=== PATIENT | male | born 1990 | race Asian ===

== ENCOUNTER 2021-07-24 08:00 | Outpatient (CLI) | payer OTHER | END 2021-07-24 23:59 | disposition home or self-care (01) | LOC: LAB.N 08:00 | PROVIDERS: ATTEND Nurse Practitioner | DX: U07.1 COVID-19 (principal) ==

== ENCOUNTER 2023-01-03 10:07 | Emergency (ER) | payer OTHER ==
[2023-01-03 10:32] LABS: BASOPHILS # (AUTO) 0.1 10^3/uL (0.0-0.1); BASOPHILS % (AUTO) 1.4 %; EOSINOPHILS # (AUTO) 0.1 10^3/uL (0.0-0.7); EOSINOPHILS % (AUTO) 2.5 %; HCT - HEMATOCRIT 44.2 % (42.0-52.0); HGB - HEMOGLOBIN 14.6 g/dL (14.0-18.0); LYMPHOCYTES % (AUTO) 36.1 %; MEAN CORPUSCULAR HEMOGLOBIN 30.2 pg (27.0-31.0); MEAN CORPUSCULAR VOLUME 91.3 fL (80.0-94.0); MEAN PLATELET VOLUME 9.2 fL (7.4-11.4); MONOCYTES # (AUTO) 0.3 10^3/uL (0.0-1.0); NEUTROPHILS # (AUTO) 3.1 10^3/uL (1.5-6.6); NEUTROPHILS % (AUTO) 54.6 %; PLT - PLATELET COUNT 325 10^3/uL (130-450); RED BLOOD COUNT 4.84 10^6/uL (4.70-6.10); RED CELL DISTRIBUTION WIDTH 12.3 % (12.0-15.0); WHITE BLOOD COUNT 5.6 x10^3/uL (4.8-10.8)
--- NOTE | 2023-01-03 10:39 | ED Physician Documentation ---
PD HPI CHEST PAIN - Stated complaint Stated Complaint: DIZZINESS, CHEST TIGHTNESS - Chief complaint Chief Complaint: Cardiac - History obtained from History obtained from: Patient - History of Present Illness Timing - onset: How many days ago (6) Timing - onset during: Rest. No: Exertion Timing - duration: Days (he has noted feeling of brief discomfort in anterior chest at times the past 6 days. No pain with movement. No dyspnea. No pain with breathing. Feeling is random but mostly noted rest and light activity. Has not felt exertional CP/SOA. no edema. No calf pains.) Timing - details: Intermittant Quality: Aching, Pain (feeling of small shock in chest rather than sharp pain.) Location: Substernal, Left chest Radiation: No: Neck, Back Worsened by: No: Inspiration, Eating, Movement, Palpation Associated symptoms: Shortness of air (intermittently), Palpitations. No: Nausea, Feeling faint / dizzy, Cough Similar symptoms before: Has not had sx before Recently seen: Emergency Dept (he was in [place], [place] at onset and seen in ER there with normal ECG/CXR/labs. No specific diagnosis. He returned home 4 days ago and felt okay on the flight. Still with the intermittent feeling here.) Review of Systems Constitutional: denies: Fever, Chills Nose: denies: Rhinorrhea / runny nose, Congestion Throat: denies: Sore throat Cardiac: denies: Pedal edema, Calf pain Respiratory: reports: Dyspnea (when the feeling occurs, not consistently). denies: Cough, Wheezing GI: denies: Abdominal Pain, Nausea, Vomiting, Diarrhea Skin: denies: Rash, Lesions Neurologic: reports: Headache (mild headache today with some lightheadedness. No vertigo.). denies: Near syncope, Syncope, Altered mental status PD PAST MEDICAL HISTORY - Past Medical History Cardiovascular: None Respiratory: Asthma Neuro: None Endocrine/Autoimmune: None - Allergies Allergies/Adverse Reactions: Allergies Allergy/AdvReac Type Severity Reaction Status Date / Time No Known Drug Allergies Allergy Verified 01/03/23 10:17 PD ED PE NORMAL - Vitals Vital signs reviewed: Yes (not tachycardic. Normal sats. ) - General General: Alert and oriented X 3, No acute distress, Well developed/nourished - HEENT HEENT: Pharynx benign - Neck Neck: Supple, no meningeal sign, No adenopathy, No bruit - Cardiac Cardiac: RRR, No murmur - Respiratory Respiratory: No respiratory distress, Clear bilaterally, Other (no chestwall tenderness. ) - Abdomen Abdomen: Soft, Non tender - Derm Derm: Normal color, Warm and dry - Extremities Extremities: No tenderness to palpate, No edema, No calf tenderness / cord - Neuro Neuro: Alert and oriented X 3, No motor deficit, Normal speech Results - Vitals Vitals: Vital Signs - 24 hr 01/03/23 01/03/23 01/03/23 10:11 10:41 11:00 Temperature 36.4 C L Heart Rate 74 77 77 Respiratory 16 18 20 Rate Blood Pressure 151/83 H 140/88 H O2 Saturation 100 100 100 01/03/23 01/03/23 11:49 12:07 Temperature Heart Rate 71 63 Respiratory 18 18 Rate Blood Pressure 122/73 122/73 O2 Saturation 100 100 Oxygen O2 Source Room air - EKG (time done) 10:13 EKG releavant findings:: EKG personally interpreted by author of this note. Relevant findings are: Rate: Rate (enter#) (86) Rhythm: NSR [place]: Normal Intervals: Normal VT QRS: Normal Ischemia: Normal ST segments. No: ST elevation c/w ischemia, ST depression - Labs Labs: Laboratory Tests 01/03/23 01/03/23 01/03/23 10:26 10:26 10:26 WBC 5.6 RBC 4.84 Hgb 14.6 Hct 44.2 MCV 91.3 MCH 30.2 MCHC 33.0 RDW 12.3 Plt Count 325 MPV 9.2 Neut # (Auto) 3.1 Lymph # (Auto) 2.0 [place] # (Auto) 0.3 Eos # (Auto) 0.1 Baso # (Auto) 0.1 Absolute Nucleated RBC 0.00 Nucleated RBC % 0.0 Sodium 141 Potassium 4.2 Chloride 104 Carbon Dioxide 29 Anion Gap 8.0 BUN 11 Creatinine 0.9 Estimated GFR (MDRD) 97 Glucose 94 Calcium 9.3 Magnesium 2.1 Total Bilirubin 0.7 AST 28 ALT 46 Alkaline Phosphatase 72 Troponin I High Sens < 2.3 L B-Natriuretic Peptide Total Protein 8.2 Albumin 4.5 Globulin 3.7 Albumin/Globulin Ratio 1.2 Lipase 43 TSH 01/03/23 01/03/23 10:26 10:26 WBC RBC Hgb Hct MCV MCH MCHC RDW Plt Count MPV Neut # (Auto) Lymph # (Auto) Barber # (Auto) Eos # (Auto) Baso # (Auto) Absolute Nucleated RBC Nucleated RBC % Sodium Potassium Chloride Carbon Dioxide Anion Gap BUN Creatinine Estimated GFR (MDRD) Glucose Calcium Magnesium Total Bilirubin AST ALT Alkaline Phosphatase Troponin I High Sens B-Natriuretic Peptide 22 Total Protein Albumin Globulin Albumin/Globulin Ratio Lipase TSH 0.41 - Rads (name of study) chest xray Relevant Findings:: Prelim report reviewed, EMP independent interpretation of test (no acute abnormalities. ), See rad report PD Medical Decision Making - ED course Complexity details: reviewed results (normal ECG, CXR and trop/bNP so no signs of mI, heart strain, CHF. PERC negative and symptoms do not sound like PE (had recent travel by plane). Had some PACs in ER with stated symptoms while here. Unclear if causative, but might be. Recommend Holter through PCP. No signs of threatening causes here.), re-evaluated patient (after labs, on recheck, he says he did have a couple of events of symptoms while here in the ER. He was on the monitor and no alarms had gone off so not too abnormal. But I did rhythm review for the time he was on monitor and the only abnormalities were a couple of separate PACs. Unknonw if cause.), considered differential, d/w patient Departure - Departure Disposition: 01 Home, Self Care Clinical Impression: Chest discomfort, Intermittent lightheadedness Condition: Stable Instructions: ED Palpitations Follow-Up: DICK MCPHERSON MD [Primary Care Provider] - Comments: Your EKG, chest x-ray, blood tests are normal. Your electrolytes are actually well in the mid normal range including potassium magnesium and calcium. Therefore I do not really see a benefit of needing to supplement the more. Stay well-hydrated. At this point on your heart monitor there is nothing significant or serious. You did have a couple of extra beats called PACs which often are not even able to be sensed. However these might be causing some of your intermittent symptoms in the chest. Typically this would not affect your heart output or blood pressure slight do not believe it would be related to the lightheadedness episodes. With that in mind, I would be wondering if you have episodes of more frequent extra beats or other rhythm disturbance. It might be prudent for your primary care to arrange an outpatient heart monitor that would record your rhythm for 3 to 5 days or so and see if it picks up and anything else unusual. At this point with your test so far and no signs of heart muscle injury or heart failure and normal conduction on your basic EKG, I feel that there is no concern about doing this outpatient and I would not predict any more significant outcome than the symptoms you are having. Other considerations can be just levels of hydration. Make sure you stay well- hydrated and normal activity. Follow-up with your primary care. Discharge Date/Time: 01/03/23 12:09
[2023-01-03 10:49] LABS: ALBUMIN 4.5 g/dL (3.2-5.5); ALBUMIN/GLOBULIN RATIO 1.2 (1.0-2.2); BILIRUBIN,TOTAL 0.7 mg/dL (0.2-1.0); CALCIUM 9.3 mg/dL (8.5-10.3); CREATININE 0.9 mg/dL (0.6-1.2); MAGNESIUM 2.1 mg/dL (1.7-2.8); POTASSIUM 4.2 mmol/L (3.5-5.0); TOTAL PROTEIN 8.2 g/dL (6.7-8.2)
--- NOTE | 2023-01-03 11:22 | XRAY Report ---
PROCEDURE: Chest 1 View X-Ray INDICATIONS: Chest pain TECHNIQUE: One view of the chest was acquired. COMPARISON: None. FINDINGS: Surgical changes and devices: None. Lungs and pleura: Lower chest parts of the costophrenic angles are excluded. No airspace consolidati on or pleural effusions. Mediastinum: Mediastinal contours appear normal. Heart size is normal. Bones and chest wall: No suspicious bony lesions. Overlying soft tissues appear unremarkable. IMPRESSION: No acute radiographic abnormality. The lowest parts of the costophrenic angles are not seen. Reviewed by: Tahir Arora MD on 01/03/2023 11:20 AM PDT Approved by: Tahir Arora MD on 01/03/2023 11:20 AM PDT Station ID: [id number]
[2023-01-03 11:50] VITALS: BP 122/73
== END 2023-01-03 12:09 | disposition home or self-care (01) ==
LOC: ED 10:07
DX: R07.9 Chest pain, unspecified (principal); R42 Dizziness and giddiness
CPT/HCPCS: 36415; 80053; 83690; 83735; 83880; 84443; 84484; 85025; 93005; 99283; 99284

== ENCOUNTER 2023-01-18 17:16 | Emergency (ER) | payer OTHER ==
--- NOTE | 2023-01-18 17:34 | ED Physician Documentation ---
PD HPI URI - Stated complaint Stated Complaint: FEVER,DISORIENTED - Chief complaint Chief Complaint: Fever - History obtained from History obtained from: Patient - History of Present Illness Timing - onset: How many days ago (2) Timing duration: Days (2) Timing details: Abrupt onset, Still present Associated symptoms: Fever, Chills, Nasal congestion, Dry cough, Dyspnea. No: Chest pain, NVD Contributing factors: Sick contact. No: Travel, Unimmunized Recently seen: Clinic (seen at [facility] and tested positive for Flu A. started on Tamiflu. However still having high fevers and malaise, some headache. Took Nyquil wihtout improvement.) Review of Systems Constitutional: reports: Fever, Chills, Myalgias, Fatigue Nose: reports: Congestion Throat: denies: Sore throat Respiratory: reports: Cough GI: denies: Abdominal Pain, Vomiting, Diarrhea Neurologic: reports: Headache. denies: Confused, Altered mental status PD PAST MEDICAL HISTORY - Past Medical History Cardiovascular: None Respiratory: Asthma Neuro: None Endocrine/Autoimmune: None - Present Medications Home Medications: Ambulatory Orders Medication Instructions Recorded Confirmed Albuterol Sulf [Ventolin Hfa 1 - 2 puffs INH Q4HR PRN #1 each 01/18/23 Inhaler] Benzonatate [Tessalon] 100 mg PO TID PRN #20 cap 01/18/23 Ibuprofen [Motrin] 600 mg PO TID PRN #20 tab 01/18/23 - Allergies Allergies/Adverse Reactions: Allergies Allergy/AdvReac Type Severity Reaction Status Date / Time No Known Drug Allergies Allergy Verified 01/18/23 17:29 PD ED PE NORMAL - Vitals Vital signs reviewed: Yes (elevated fever) - General General: Alert and oriented X 3, No acute distress, Well developed/nourished - HEENT HEENT: Ears normal, Moist mucous membranes, Pharynx benign - Neck Neck: Supple, no meningeal sign (he has some tenderness more to the anterior nodes area though not enlarged. No neck rigidity. ), No adenopathy - Cardiac Cardiac: No: RRR (tachycardic but regular. ) - Respiratory Respiratory: No respiratory distress, Clear bilaterally (no noted wheezing nor crackles but does have some tightness to expirations. ) - Abdomen Abdomen: Soft, Non tender - Derm Derm: Normal color, Warm and dry Results - Vitals Vitals: Vital Signs - 24 hr 01/18/23 01/18/23 01/18/23 17:25 18:06 18:13 Temperature 39.4 C H 39.5 C H Heart Rate 108 H 100 Respiratory 20 18 Rate Blood Pressure 141/79 H O2 Saturation 100 01/18/23 18:32 Temperature 38.2 C H Heart Rate 99 Respiratory 20 Rate Blood Pressure 128/74 O2 Saturation 100 Oxygen O2 Source Room air PD Medical Decision Making - ED course Complexity details: considered differential (he has Flu A by clinic testing. With flu-like symptoms. No antipyretics taken as he did not know if could mix Nyquil and other meds. Has history of asthma, and so will likely benefit from MDI with the current illness. Discussed with him the mix of medications he can use for symptoms. ), d/w patient Departure - Departure Disposition: 01 Home, Self Care Clinical Impression: Fever, Influenza Condition: Stable Instructions: ED Flu Follow-Up: DICK MCPHERSON MD [Primary Care Provider] - Prescriptions: Albuterol Sulf [Ventolin Hfa Inhaler] 1 - 2 puffs INH Q4HR PRN #1 each PRN Reason: Shortness Of Air/Wheezing Ibuprofen [Motrin] 600 mg PO TID PRN #20 tab PRN Reason: Pain Benzonatate [Tessalon] 100 mg PO TID PRN #20 cap PRN Reason: Cough Comments: He did did have a reasonably high fever and that certainly is can account for a lot of the aches and chills and headache. Aches and headache will be just general flu symptoms as well. At this point you do not look too ill such as sepsis/pneumonia/encephalitis or anything to that degree. Sounds like good flu type symptoms. Continue the Tamiflu previously prescribed. Particularly for fevers, you can use a combination of an anti-inflammatory such as ibuprofen 600 mg with food 3 times daily. To that you can add acetaminophen/Tylenol 650 mg 4 times daily. I would consider taking both of these regularly for the next 3 to 4 days just knowing your fever will be up and down. To that you can add benzonatate if needed for cough and the albuterol inhaler 2 puffs 4 times daily to help as well. It still okay to add [id number] cough medicine such as NyQuil or such to this mix as none of the medicines are redundant per se. I sent your prescriptions to the [facility] pharmacy. Return or follow-up if you are having worsening trouble breathing, increasing h eadache or neck stiffness, repetitive vomiting, other concerns. Discharge Date/Time: 01/18/23 18:33
[2023-01-18] MEDS ORDERED: KETOROLAC 30 MG/ML VIAL IM STA (17:56)
[2023-01-18] MEDS ORDERED: ACETAMINOPHEN 500 MG TABLET PO STA (17:57)
[2023-01-18] MEDS ORDERED: ALBUTEROL 1 PUFF INH STA (17:57)
[2023-01-18] MEDS ORDERED: BENZONATATE 100 MG CAPSULE PO STA (17:57)
[2023-01-18 18:34] VITALS: BP 128/74
== END 2023-01-18 18:33 | disposition home or self-care (01) ==
LOC: ED 17:16
DX: J11.1 Influenza due to unidentified influenza virus with other respiratory manifestations (principal)
CPT/HCPCS: 94640; 96372; 99283; A9270